=== PATIENT | female | born 1965 | race African-American/Black ===

== ENCOUNTER 2019-06-28 12:34 | Outpatient (CLI) | payer OTHER ==
--- NOTE | 2019-06-28 13:57 | RAD ---
PA AND LATERAL CHEST: HISTORY: Abdominal distention. GERD. Belching symptoms. COMPARISON: 09/24/2011 FINDINGS: The heart size is normal. The lungs are expanded without focal areas of consolidation, pneumothoraces or pleural effusions. No acute osseous abnormalities are seen. IMPRESSION: No radiographic evidence of acute cardiopulmonary process. POS: OFF
--- NOTE | 2019-06-28 13:59 | RAD ---
ABDOMEN TWO VIEWS: HISTORY: Abdominal distention. GERD. Belching symptoms. FINDINGS: No free air or differential fluid level is seen. The bowel gas pattern is unremarkable. There is feca l material in the colon. No suspicious calcifications are identified. There are multiple calcific den sities in the pelvis, likely phleboliths. POS: OFF
== END 2019-06-28 12:35 | disposition home or self-care (01) ==
LOC: BICRAD 12:34
PROVIDERS: ATTEND Physician Assistant Medical
DX: K21.9 Gastro-esophageal reflux disease without esophagitis (principal); R14.0 Abdominal distension (gaseous); R14.2 Eructation
CPT/HCPCS: 71046; 74019

== ENCOUNTER 2019-11-18 20:30 | Outpatient (CLI) | payer OTHER | END 2019-11-18 20:31 | disposition home or self-care (01) | LOC: SLEEPLAB 20:30 | PROVIDERS: ATTEND Internal Medicine Critical Care Medicine | DX: G47.33 Obstructive sleep apnea (adult) (pediatric) (principal); E66.9 Obesity, unspecified; K21.9 Gastro-esophageal reflux disease without esophagitis; I10 Essential (primary) hypertension; Z86.73 Personal history of transient ischemic attack (TIA), and cerebral infarction without residual deficits | CPT/HCPCS: 95810 ==

== ENCOUNTER 2021-02-13 10:50 | Outpatient (CLI) | payer OTHER | END 2021-02-13 10:51 | disposition home or self-care (01) | LOC: BICCT 10:50 | PROVIDERS: ATTEND Internal Medicine Cardiovascular Disease | DX: I63.9 Cerebral infarction, unspecified (principal) | CPT/HCPCS: 70450 ==

== ENCOUNTER 2025-09-15 12:42 | Emergency (ER) | payer MEDICAID, OTHER ==
[2025-09-15 13:50] LABS: Bacteria/HPF None Seen HPF (None Seen); CAUTI Indications for Culture Dysuria,urgency,freq; Glucose, Urine (Dipstick) Normal (Negative); Leukocyte Negative Leu/uL (Negative); Protein, Urine (Dipstick) Negative (Neg-Trace); RBC/HPF 0-3 HPF (0-3); Specific Gravity, Urine 1.011 (1.002-1.036); WBC/HPF 0-3 HPF (0-3)
[2025-09-15 13:51] LABS: Urine Culture Reflex No No
[2025-09-15] MEDS ORDERED: HYDROcodone/Acetaminophen 5/325 mg Tablet ONE (15:14)
[2025-09-15 21:30] LABS: Chlamydia by PCR, Vaginal Swab Not Detected (NotDetected); GC by PCR, Vaginal Swab Not Detected (NotDetected)
== END 2025-09-15 15:20 | disposition home or self-care (01) ==
LOC: ERS 12:42
DX: N76.0 Acute vaginitis (principal); I10 Essential (primary) hypertension; E11.9 Type 2 diabetes mellitus without complications; Z79.899 Other long term (current) drug therapy
CPT/HCPCS: 81001; 87086; 87480; 87491; 87510; 87591; 87660; 99284